=== PATIENT | female | born 1950 | race Caucasian/White ===

== ENCOUNTER 2018-04-27 09:29 | Inpatient (IN) | payer MEDICARE, BC ==
[~2018-04-27] VITALS: Ht 165.1 cm; Wt 62.2 kg
--- NOTE | ~2018-04-27 | EKG ---
[place], [place] ELECTROCARDIOGRAM REPORT NAME: VALENTIN JEAN UNIT #: [id number] ROOM: [facility] DOCTOR: PARMINDER DRAFT REPORT BIRTHDATE: [birth year] [facility] Test Date: 2018-04-27 Test Time: 09:31:07 Pat Name: VALENTIN JEAN Department: Room: Gender: F [employer] Crane Operator: : 1950 Requested By: SANA JUAREZ Order Number: [id number] Reading MD: Kanwal Chavez MD Measurements Intervals [place] Rate: 77 P: 19 OK: 153 QRS: 11 QRSD: 109 T: 77 QT: 387 QTc: 438 Interpretive Statements Sinus rhythm Borderline low voltage, extremity leads Electronically Signed On 04-28-2018 9:39:40 PDT by Kanwal Chavez MD CM:EKGRPT:ELECTROCARDIOGRAM REPORT [id number] SANA ZURITA DRAFT REPORT SANA JUAREZ M.D.
[~2018-04-27 09:29] MED LIST: AMLODIPINE BESYL5 MG PO; ASPIRIN325 M2 PO; CELEBREX100 MG PO; CYCLOBENZAPRINE5 M3 PO; CYMBALTA60 MG PO; DURAGESIC 50 M50 MCG TD; KEPPRA500 MG PO; LOPID600 M1 PO; NORCO 10-325 T1 EACH PO; PRILOSEC40 M1 PO; TRAZODONE100 MG PO; ZETIA10 MG PO
[2018-04-27 09:32] VITALS: BP 147/84
[2018-04-27 09:49] LABS: HEMATOCRIT 39.5 % (37.0-47.0); HEMOGLOBIN 13.2 g/dl (12.0-16.0); MEAN CELL VOLUME 87.4 fl (81.0-99.0); MEAN CORPUSCULAR HGB 29.2 pg (27.0-31.0); MEAN CORPUSCULAR HGB CONC 33.4 g/dl (33.0-37.0); MEAN PLATELET VOLUME 10.5 fl (9.6-12.3); PLATELET COUNT AUTOMATED 320 10*3/uL (130-400); RED BLOOD COUNT 4.52 10*6/uL (4.10-5.10); RED CELL DISTRI WIDTH 12.9 % (0-14.5); WHITE BLOOD COUNT 6.4 10*3/uL (4.8-10.8)
[2018-04-27 09:53] VITALS: BP 113/65
[2018-04-27 09:53] LABS: BASO # 0.1 10*3/uL (0.0-0.1); BASO % 1.1 % (0.0-1.0); EOS # 0.1 10*3/uL (0.0-0.4); EOS % 1.4 % (1.0-4.0); LYMPH # 2.1 10*3/uL (1.3-4.4); LYMPH % 33.2 % (27.0-41.0); MONO # 0.5 10*3/uL (0.1-1.0); NEUT # 3.7 10*3/uL (2.3-7.9)
[2018-04-27] MEDS ORDERED: BUSPAR5 MG PO (09:56)
[2018-04-27] MEDS ORDERED: OMEPRAZOLE40 MG PO (09:57)
[2018-04-27] MEDS ORDERED: FOSAMAX70 M1 PO (09:57)
[2018-04-27] MEDS ORDERED: CELECOXIB200 M1 PO (09:57)
[2018-04-27] MEDS ORDERED: LORAZEPAM0.5 MG PO (09:57)
[2018-04-27] MEDS ORDERED: AMLODIPINE BESYL5 MG PO (09:58)
[2018-04-27] MEDS ORDERED: ZETIA10 MG PO (09:58)
[2018-04-27] MEDS ORDERED: TRAZODONE100 MG PO (09:59)
[2018-04-27] MEDS ORDERED: FLOVENT HFA12 GM INH (09:59)
[2018-04-27] MEDS ORDERED: CLONIDINE1 EACH TD (09:59)
[2018-04-27] MEDS ORDERED: LORZONE750 M1 PO (10:00)
[2018-04-27] MEDS ORDERED: HYDROCODONE-AC1 EAC2 PO (10:00)
[2018-04-27] MEDS ORDERED: VITAMIN D31000 UNI1 PO (10:00)
[2018-04-27] MEDS ORDERED: CALCIUM 600 +1 EAC4 PO (10:01)
[2018-04-27] MEDS ORDERED: RESTASIS1 EACH OS (10:01)
[2018-04-27 10:05] LABS: ALKALINE PHOSPHATASE 66 U/L (45-117); BUN 19 mg/dl (7-24); CHLORIDE 107 mmol/L (98-107); CREATININE 0.82 mg/dL (0.55-1.02); INTERNATIONAL NORM RATIO 0.9 (2.0-3.5); POTASSIUM 3.8 mmol/L (3.5-5.1); SGOT/AST 24 IU/L (3-35); SGPT/ALT 24 U/L (12-78); SODIUM 140 mmol/L (136-145); TOTAL PROTEIN 7.7 gm/dL (6.4-8.2)
[2018-04-27 10:06] LABS: TROPONIN I < 0.015 ng/ml (<0.045)
[2018-04-27] MEDS ORDERED: ASPIRIN325 M2 PO (10:55)
[2018-04-27 11:08] VITALS: BP 139/50
[2018-06-05] MEDS ORDERED: ACCUNEB 0.1.25 MG/1 INH (20:03)
[2018-06-06] MEDS ORDERED: Catapres-Tts 20.2 MG T (13:31)
== END 2018-04-27 15:43 | disposition left against medical advice (07) | DRG 205 ==
LOC: ED 09:29 → EDHOLD 10:48 → 5E 10:48
PROVIDERS: Emergency Medicine
DX: M94.0 Chondrocostal junction syndrome [Tietze] (principal); J18.9 Pneumonia, unspecified organism; I67.1 Cerebral aneurysm, nonruptured; I11.0 Hypertensive heart disease with heart failure; I50.32 Chronic diastolic (congestive) heart failure; K21.9 Gastro-esophageal reflux disease without esophagitis; F41.9 Anxiety disorder, unspecified; E78.5 Hyperlipidemia, unspecified; F32.9 Major depressive disorder, single episode, unspecified; R73.9 Hyperglycemia, unspecified; R51 Headache; M48.00 Spinal stenosis, site unspecified; M19.90 Unspecified osteoarthritis, unspecified site; M81.0 Age-related osteoporosis without current pathological fracture; Z79.82 Long term (current) use of aspirin; Z88.1 Allergy status to other antibiotic agents; Z88.8 Allergy status to other drugs, medicaments and biological substances; Z79.899 Other long term (current) drug therapy; Z87.81 Personal history of (healed) traumatic fracture; Z98.49 Cataract extraction status, unspecified eye; Z90.710 Acquired absence of both cervix and uterus; Z90.49 Acquired absence of other specified parts of digestive tract; Z82.49 Family history of ischemic heart disease and other diseases of the circulatory system; Z71.6 Tobacco abuse counseling; Z72.0 Tobacco use